=== PATIENT | female | born 1980 | race Caucasian/White ===

== ENCOUNTER → 2018-12-23 | Outpatient (CLI) | payer OTHER ==
--- NOTE | 2018-12-23 16:59 | MAM ---
EXAM DESCRIPTION: 3D Diagnostic, Right: Digital Mammography CLINICAL HISTORY: 38 yearsFemaleABNORMAL MAMMO focal asymmetry lower outer quadrant posterior third right breast.. COMPARISON: Bilateral screening digital breast tomosynthesis 11/06/2018.. Targeted left breast ultrasound included with this examination. TECHNIQUE: Right breast LM and CC projection full-field images, digital mammographic tomosynthesis technique. CAD not available. FINDINGS: The breast parenchymal density pattern is: Heterogeneously dense breast tissue, which may obscure small masses. No skin thickening or nipple retraction focal asymmetry in the posterior third of the right breast lower outer quadrant, well demonstrated. No dominant mass or abnormal microcalcifications. Ultrasound: Scanning 6:00 to 8:00 position of the right breast 10 cm from the nipple. Abutting the chest wall. Mostly fatty echotexture. An island of fibroglandular/fibrocystic tissue is well demonstrated. Corresponds to focal asymmetry on the mammogram, abutting the chest wall. No dominant solid mass or margins. No large calcifications. Mostly posterior acoustic shadowing. Nonvascular. No distinct cyst. No overlying skin changes. IMPRESSION: BI-RADS CATEGORY: 3 - PROBABLY BENIGN. Management: Short interval (6-month) follow-up diagnostic right breast digital mammography and targeted right breast ultrasound. The FINDINGS and the FOLLOW-UP plan were reviewed in person with the patient after the examination. Written communication explaining the IMPRESSION and FOLLOW-UP will be mailed to the patient and referring care provider. Electronically signed by: Humberto Vincent MD 12/23/2018 4:57 PM CDT
== END ==
LOC: MAMMO 15:01
PROVIDERS: ATTEND Nurse Practitioner Family
DX: R92.8 Other abnormal and inconclusive findings on diagnostic imaging of breast (principal)
CPT/HCPCS: 76641; 77065; G0279

== ENCOUNTER → 2019-06-16 | Outpatient (CLI) | payer OTHER ==
--- NOTE | 2019-06-16 19:36 | US ---
EXAM DESCRIPTION: Diagnostic Mammo,Right (accession [id number]), Breast,Right (accession [id number]): Ultrasound CLINICAL HISTORY: 39 yearsFemale6 MONTH FOLLOW UP focal asymmetry right breast. Lifetime risk of developing breast cancer (Tyrer-Cuzick model)(%): 9.0. COMPARISON: Bilateral screening digital breast tomosynthesis November 06, 2018. Right breast diagnostic mammography and ultrasound 23 December 2018. TECHNIQUE: Right breast MLO, CC, and LM projection full-field images, digital tomosynthesis technique. Right breast 2-D digital full-field images: MLO projection. CAD not available.. Transcutaneous scanning of the right breast utilizing macias-scale and Doppler modes. Scanning performed by the electric pile driver operator ; supervision by Dr. Vincent. FINDINGS: The breast parenchymal density pattern is: Heterogeneously dense breast tissue, which may obscure small masses. No skin thickening or nipple retraction . Again noted is focal asymmetry in the posterior third of the lower outer quadrant of the right breast just above the inferior mammary fold and anterior to the inferior right pectoral muscle. No associated microcalcifications and no new mass. Stable size since the prior study. More dense fibroglandular tissues in the anterior half of the breast are also stable. No new focal, stellate mass or density, focal asymmetry , and no suspicious microcalcifications right breast. Ultrasound: Scanning of the lower outer quadrant of the posterior right breast near the chest wall at the 7:00 position. Focal fibroglandular tissues are heterogeneous surrounded by mostly fatty tissues. No definite margins. Wider than tall orientation. Variable posterior acoustic features. No dominant solid mass, no distinct cyst, and no large calcifications. No overlying skin changes. IMPRESSION: Probably benign focal fibroglandular tissues, stable since the prior study. BI-RADS CATEGORY: 3 - PROBABLY BENIGN. Management: Short interval (6-month) diagnostic right breast digital mammography and directed right breast ultrasound. Also performed with routine 1 year follow-up left breast.. The FINDINGS and the FOLLOW-UP plan were reviewed in person with the patient after the examination. Written communication explaining the IMPRESSION and FOLLOW-UP will be mailed to the patient and referring care provider. Electronically signed by: Humberto Vincent MD 06/16/2019 7:35 PM [employer]PORATE [employer] MANAGER
== END ==
LOC: MAMMO 13:00
PROVIDERS: ATTEND Nurse Practitioner Family
DX: R92.8 Other abnormal and inconclusive findings on diagnostic imaging of breast (principal)